=== PATIENT | female | born 2005 | race African-American/Black ===

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

== ENCOUNTER 2023-10-19 05:10 | Inpatient (IN) | payer OTHER ==
[2023-10-19 08:11] LABS: URINE APPEARANCE CLEAR; URINE BILIRUBIN NEGATIVE (NEGATIVE); URINE COLOR YELLOW; URINE GLUCOSE (UA) NEGATIVE (NEGATIVE); URINE KETONE NEGATIVE (NEGATIVE); URINE LEUK ESTERASE NEGATIVE (NEGATIVE); URINE NITRITE NEGATIVE (NEGATIVE); URINE PROTEIN NEGATIVE (NEGATIVE); URINE UROBILINOGEN 0.2 mg/dL (0.2-1.0)
[2023-10-19 08:13] LABS: BASO % 0.2 % (0-2.0); HEMATOCRIT 34.5 % (32.4-45.2); HEMOGLOBIN 11.5 GM/dL (10.7-15.3); LYMPH % 25.2 % (8-40); MCH 28.8 pg (25.7-33.7); MCHC 33.5 g/dl (32.0-36.0); MEAN CELL VOLUME 86.2 fl (80-96); MEAN PLT VOLUME 9.6 fl (7.5-11.1); MONO % 8.8 % (3.8-10.2); NEUT % 64.8 % (42.8-82.8); PLATELET COUNT 214 10^3/uL (134-434); RDW 13.3 % (11.6-15.6); RETICULOCYTES 1.67 % (0.5-1.5); WHITE BLOOD COUNT 7.7 K/mm3 (4.0-10.0)
[2023-10-19 08:17] LABS: INR 0.96 (0.83-1.09); PROTHROMBIN TIME (PATIENT) 11.1 SEC (9.7-13.0)
[2023-10-19 08:19] LABS: ACTIVATED PTT 26.5 SECONDS (25.2-36.5)
[2023-10-19 08:32] LABS: POTASSIUM 4.1 mmol/L (3.5-5.1)
[2023-10-19 08:34] LABS: ALBUMIN 2.8 g/dl (3.4-5.0); CALCIUM 9.2 mg/dL (8.5-10.1)
[2023-10-19 08:35] LABS: BLOOD UREA NITROGEN 6.8 mg/dL (7-18)
[2023-10-19 08:37] LABS: CREATININE 0.6 mg/dL (0.55-1.3); URIC ACID 4.9 mg/dL (2.6-7.2)
[2023-10-19 08:38] LABS: OPIATES, URI NEGATIVE (NEGATIVE); URINE BARBITURATES NEGATIVE (NEGATIVE)
[2023-10-19 08:39] LABS: METHADONE, UR NEGATIVE (NEGATIVE); PHENCYCLIDINE,URINE NEGATIVE (NEGATIVE); URINE BENZODIAZEPINES NEGATIVE (NEGATIVE)
[2023-10-19 08:39] LABS: BILIRUBIN,TOTAL 0.3 mg/dL (0.2-1); TOT PROT 6.2 g/dl (6.4-8.2)
[2023-10-19 08:58] LABS: COCAINE, UR NEGATIVE (NEGATIVE); URINE AMPHETAMINES NEGATIVE (NEGATIVE)
[2023-10-19 11:51] LABS: SYPHILIS W/ RPR CONF NON-REACTIVE (NONREACTIVE)
[2023-10-19 12:20] LABS: HIV INTERPRETATION NEGATIVE (NEGATIVE)
[2023-10-19] MEDS ORDERED: DINOPROSTONE 10 MG VAGINAL SUPPOSITORY VG STA (14:04)
[2023-10-19] MEDS ORDERED: LABETALOL HCL 200 MG TABLET (FP) ONE ×2 (14:45→21:56)
[2023-10-19] MEDS ORDERED: LABETALOL HCL 100 MG TABLET (FP) ONE ×3 (14:45→21:59)
[2023-10-19] MEDS: LABETALOL HCL 100 MG TABLET (FP) PO SCH ×2 (14:50→22:00)
[2023-10-19] MEDS: ELECTROLYTE-148 SOLN 1,000 ML IV SCH (14:52)
[2023-10-19 15:37] LABS: BASO % 0.5 % (0-2.0); EOS % 0.8 % (0-4.5); EOS % 1.2 % (0-4.5); HEMATOCRIT 33.1 % (32.4-45.2); HEMATOCRIT 33.9 % (32.4-45.2); HEMOGLOBIN 11.2 GM/dL (10.7-15.3); HEMOGLOBIN 11.3 GM/dL (10.7-15.3); LYMPH % 21.3 % (8-40); LYMPH % 22.4 % (8-40); MCH 28.8 pg (25.7-33.7); MCH 29.3 pg (25.7-33.7); MCHC 33.3 g/dl (32.0-36.0); MEAN CELL VOLUME 86.4 fl (80-96); MEAN CELL VOLUME 86.5 fl (80-96); MEAN PLT VOLUME 9.4 fl (7.5-11.1); MEAN PLT VOLUME 9.5 fl (7.5-11.1); MONO % 9.1 % (3.8-10.2); MONO % 9.3 % (3.8-10.2); NEUT % 67.9 % (42.8-82.8); PLATELET COUNT 199 10^3/uL (134-434); PLATELET COUNT 203 10^3/uL (134-434); RBC 3.83 M/mm3 (3.60-5.2); RBC 3.91 M/mm3 (3.60-5.2); RDW 13.1 % (11.6-15.6); WHITE BLOOD COUNT 6.7 K/mm3 (4.0-10.0); WHITE BLOOD COUNT 6.9 K/mm3 (4.0-10.0)
[2023-10-19 15:45] LABS: POTASSIUM 3.8 mmol/L (3.5-5.1)
[2023-10-19 15:46] LABS: POTASSIUM 3.8 mmol/L (3.5-5.1)
[2023-10-19 15:47] LABS: CALCIUM 8.5 mg/dL (8.5-10.1)
[2023-10-19 15:48] LABS: ALBUMIN 2.6 g/dl (3.4-5.0); BLOOD UREA NITROGEN 6.1 mg/dL (7-18)
[2023-10-19 15:49] VITALS: BMI 26.6
[2023-10-19 15:50] LABS: CALCIUM 8.9 mg/dL (8.5-10.1)
[2023-10-19 15:51] LABS: ALBUMIN 2.6 g/dl (3.4-5.0); BLOOD UREA NITROGEN 6.4 mg/dL (7-18); CREATININE 0.7 mg/dL (0.55-1.3)
[2023-10-19 15:53] LABS: BILIRUBIN,TOTAL 0.4 mg/dL (0.2-1); TOT PROT 5.9 g/dl (6.4-8.2)
[2023-10-19 15:54] LABS: CREATININE 0.7 mg/dL (0.55-1.3)
[2023-10-19 15:55] LABS: BILIRUBIN,TOTAL 0.4 mg/dL (0.2-1); TOT PROT 5.9 g/dl (6.4-8.2)
[2023-10-19] MEDS ORDERED: BUTORPHANOL TARTRATE 2 MG/ML VIAL ONE (20:00)
[2023-10-19] MEDS: LACTATED RINGERS SOLUTION 1,000 ML IV SCH (20:48)
[2023-10-19] MEDS ORDERED: BUTORPHANOL TARTRATE 2 MG/ML VIAL IVPB ONE (21:00)
[2023-10-20] MEDS ORDERED: DINOPROSTONE 10 MG VAGINAL SUPPOSITORY VG STA (01:50)
[2023-10-20] MEDS ORDERED: BUTORPHANOL TARTRATE 2 MG/ML VIAL ONE (03:48)
[2023-10-20] MEDS ORDERED: BUTORPHANOL TARTRATE 1 MG/ML VIAL IVPB ONE (03:49)
[2023-10-20] MEDS ORDERED: PROMETHAZINE HCL 25 MG/1 ML VIAL IVPB ONE (03:49)
[2023-10-20] MEDS: LACTATED RINGERS SOLUTION 1,000 ML IV SCH ×3 (08:00→16:50)
[2023-10-20] MEDS ORDERED: LABETALOL HCL 100 MG TABLET (FP) ONE ×2 (09:09→09:15)
[2023-10-20] MEDS ORDERED: LABETALOL HCL 200 MG TABLET (FP) ONE (09:10)
[2023-10-20] MEDS: LABETALOL HCL 100 MG TABLET (FP) PO SCH (09:14)
[2023-10-20] MEDS ORDERED: FENTANYL/BUPIVACAINE/NS/PF - PCEA - 50 ML DISP.SYRIN EP ONE ×4 (10:10→17:50)
[2023-10-20] MEDS: FENTANYL/BUPIVACAINE/NS/PF - PCEA - 50 ML DISP.SYRIN EP SCH ×3 (10:45→17:53)
[2023-10-20] MEDS ORDERED: NALOXONE HCL 0.4 MG/ML VIAL IVPUSH PRN ×2 (11:17→11:18)
[2023-10-20] MEDS ORDERED: OXYTOCIN 30 UNITS in 0.9% NS 30 UNIT/500 ML INFUS.BAG IVPB ONE (11:18)
[2023-10-20] MEDS: OXYTOCIN 30 UNITS in 0.9% NS 30 UNIT/500 ML INFUS.BAG IVPB SCH (11:21)
[2023-10-20] MEDS ORDERED: FENTANYL/BUPIVACAINE/NS/PF - PCEA - 50 ML DISP.SYRIN EP SCH (11:30)
[2023-10-20] MEDS ORDERED: NIFEdipine 10 MG CAPSULE (FP) ONE ×2 (11:46→22:12)
[2023-10-20] MEDS: NIFEdipine 10 MG CAPSULE (FP) PO SCH ×3 (11:50→22:20)
[2023-10-20] MEDS ORDERED: SODIUM CHLORIDE 100 ML IVPB ONE ×2 (11:59→15:42)
[2023-10-20] MEDS ORDERED: AMPICILLIN SODIUM 2 GM VIAL ONE (11:59)
[2023-10-20] MEDS ORDERED: AMPICILLIN - 2 GM in SODIUM CHLORIDE 100 ML IVPB ONE (12:02)
[2023-10-20] MEDS ORDERED: AMPICILLIN SODIUM 1 GM VIAL ONE (15:42)
[2023-10-20] MEDS: AMPICILLIN - 1 GM in SODIUM CHLORIDE 100 ML IVPB SCH (15:45)
[2023-10-20] MEDS: ELECTROLYTE-148 SOLN 1,000 ML IV SCH (15:51)
[2023-10-20] MEDS ORDERED: OXYTOCIN 20 UNITS in 0.9% NS 20 UNIT/1,000 ML INFUS.BAG IV ONE (18:29)
[2023-10-20] MEDS ORDERED: MISOPROSTOL 200 MCG TABLET PR ONE (20:00)
[2023-10-20] MEDS ORDERED: MISOPROSTOL 200 MCG TABLET ONE (20:11)
[2023-10-20] MEDS ORDERED: NIFEdipine E.R. 30 MG TABLET PO ONE (20:37)
[2023-10-20] MEDS: NIFEdipine E.R. 30 MG TABLET PO SCH (20:40)
[2023-10-20] MEDS ORDERED: ACETAMINOPHEN 325 MG TABLET (FP) PO PRN (20:43)
[2023-10-20] MEDS ORDERED: IBUPROFEN 600 MG TABLET (FP) PO PRN (20:43)
[2023-10-20] MEDS ORDERED: BENZOCAINE 28 GM HEMORRHOIDAL OINTMENT TP PRN (20:43)
[2023-10-20] MEDS ORDERED: BENZOCAINE 20% 57 GM BOTTLE TP PRN (20:43)
[2023-10-20] MEDS ORDERED: BISACODYL 10 MG SUPP.RECT RC PRN (20:43)
[2023-10-20] MEDS ORDERED: WITCH HAZEL 50% (TUCKS) 40 PAD/JAR PAD TP PRN (20:43)
[2023-10-20] MEDS ORDERED: OXYTOCIN 20 UNITS in 0.9% NS 20 UNIT/1,000 ML INFUS.BAG IV SCH (20:45)
[2023-10-20 20:55] LABS: CORD BASE EXCESS -3.8 mmol/L (0-2); CORD PCO2 47.8 mmHg (30-78); CORD pH 7.3 (7.14-7.44)
[2023-10-20] MEDS ORDERED: MISOPROSTOL 100 MCG TABLET PR SCH (22:00)
[2023-10-20] MEDS: oxyCODONE HCL 5 MG TABLET PO PRN (22:30)
[2023-10-20] MEDS ORDERED: oxyCODONE HCL 5 MG TABLET ONE (22:44)
[2023-10-21] MEDS ORDERED: NIFEdipine 10 MG CAPSULE (FP) PO ONE (00:03)
[2023-10-21] MEDS ORDERED: NIFEdipine 10 MG CAPSULE (FP) ONE (00:08)
[2023-10-21 02:08] VITALS: RESP 18
[2023-10-21] MEDS: NIFEdipine 10 MG CAPSULE (FP) PO SCH (06:05)
[2023-10-21 07:11] LABS: RUBELLA ANTIBODY,IGM <20.0 AU/mL (0.0-19.9)
[2023-10-21 08:35] LABS: BASO % 0.3 % (0-2.0); EOS % 0.2 % (0-4.5); HEMATOCRIT 28.8 % (32.4-45.2); HEMOGLOBIN 9.6 GM/dL (10.7-15.3); LYMPH % 13.3 % (8-40); MCH 28.8 pg (25.7-33.7); MCHC 33.4 g/dl (32.0-36.0); MEAN CELL VOLUME 86.2 fl (80-96); MEAN PLT VOLUME 9.6 fl (7.5-11.1); MONO % 12.9 % (3.8-10.2); NEUT % 73.3 % (42.8-82.8); PLATELET COUNT 183 10^3/uL (134-434); RBC 3.34 M/mm3 (3.60-5.2); RDW 13.2 % (11.6-15.6); WHITE BLOOD COUNT 12.7 K/mm3 (4.0-10.0)
[2023-10-21] MEDS: oxyCODONE HCL 5 MG TABLET PO PRN (09:24)
[2023-10-21] MEDS: LABETALOL HCL 100 MG TABLET (FP) PO SCH ×3 (09:26→22:15)
[2023-10-21] MEDS: NIFEdipine E.R. 30 MG TABLET PO SCH (09:26)
[2023-10-21] MEDS: LACTATED RINGERS SOLUTION 1,000 ML IV SCH (21:01)
[2023-10-21] MEDS: OXYTOCIN 30 UNITS in 0.9% NS 30 UNIT/500 ML INFUS.BAG IVPB SCH (21:02)
[2023-10-21] MEDS: ELECTROLYTE-148 SOLN 1,000 ML IV SCH (21:04)
[2023-10-21] MEDS: AMPICILLIN - 1 GM in SODIUM CHLORIDE 100 ML IVPB SCH (21:05)
[2023-10-21] MEDS ORDERED: SENNOSIDES/DOCUSATE COMBO (SENNA PLUS) TABLET (UD) PO PRN (22:00)
[2023-10-22 09:20] VITALS: TEMP 98.3
[2023-10-22] MEDS: LABETALOL HCL 100 MG TABLET (FP) PO SCH (09:36)
[2023-10-22] MEDS: NIFEdipine E.R. 30 MG TABLET PO SCH ×2 (09:46→19:25)
[2023-10-22 19:46] VITALS: BP 134/94; PULSE 85
== END 2023-10-22 19:40 | disposition home or self-care (01) | DRG 560 ==
LOC: JDEL 05:10 → JLDR 13:30 → J3W 10-21 01:26
PROVIDERS: ADMIT Obstetrics & Gynecology; ATTEND Student in an Organized Health Care Education/Training Program
PROC: 3E0P7VZ Introduction of Hormone into Female Reproductive, Via Natural or Artificial Opening (ICD-10-PCS; 2023-10-19)
PROC: 10E0XZZ Delivery of Products of Conception, External Approach (ICD-10-PCS; principal; 2023-10-20)
PROC: 0W8NXZZ Division of Female Perineum, External Approach (ICD-10-PCS; 2023-10-20)
PROC: 10907ZC Drainage of Amniotic Fluid, Therapeutic from Products of Conception, Via Natural or Artificial Opening (ICD-10-PCS; 2023-10-20)
DX: O13.4 Gestational [pregnancy-induced] hypertension without significant proteinuria, complicating childbirth (principal); O69.81X0 Labor and delivery complicated by cord around neck, without compression, not applicable or unspecified; Z3A.37 37 weeks gestation of pregnancy; Z37.0 Single live birth
CPT/HCPCS: 36415; 36600; 59025; 76819-TC; 80053; 80307; 81003; 82803; 82977; 83010; 83036; 84550; 85025; 85045; 85610; 85730; 86762; 86780; 86850; 86900; 86901; 87340; 87389